=== PATIENT | male | born 1975 | race African-American/Black ===

== ENCOUNTER 2020-07-06 17:37 | Emergency (ER) | payer OTHER ==
[~2020-07-06] VITALS: Ht 172.7 cm; Wt 117.9 kg
[2020-07-06] MEDS ORDERED: NORVASC 2.5 MG2.5 M1 PO (17:46)
[2020-07-06] MEDS ORDERED: KAPSPARGO SPRIN50 MG PO (17:47)
[2020-07-06 19:04] LABS: HEMATOCRIT 40.9 % (42.0-52.0); HEMOGLOBIN 13.3 gm/dL (14.0-18.0); MCH 27.1 pg (26.0-34.0); MCHC 32.6 g/dL (28.0-37.0); MCV 83.2 fL (80.0-100.0); PLATELET COUNT 323 thou/uL (150-400); RBC 4.92 mil/uL (4.50-6.00); RDW 14.3 % (10.5-14.5); WBC 14.4 thou/uL (4.0-11.0)
[2020-07-06 19:21] LABS: CALCIUM 9.4 mg/dL (8.5-10.1); CREATININE 1.4 mg/dL (0.7-1.3); POTASSIUM 4.4 mmol/L (3.5-5.1)
[2020-07-06 19:28] LABS: ALBUMIN 3.7 g/dL (3.4-5.0); TOTAL BILIRUBIN 0.3 mg/dL (0.2-1.0); TOTAL PROTEIN 8.3 g/dL (6.4-8.2)
[2020-07-06 19:40] LABS: ABSOLUTE NEUTROPHILS 10.4 thou/uL (1.4-8.2)
[2020-07-06] MEDS ORDERED: MELOXICAM15 MG PO (21:50)
[2020-07-06] MEDS ORDERED: KEFLEX500 M1 PO (21:50)
[2020-07-06] MEDS ORDERED: FLEXERIL PO (22:02)
[2020-07-06 22:08] VITALS: BP 130/80
== END 2020-07-06 22:08 | disposition home or self-care (01) ==
LOC: ER 17:37
PROVIDERS: Physician Assistant
DX: L03.115 Cellulitis of right lower limb (principal); I10 Essential (primary) hypertension; Z79.899 Other long term (current) drug therapy; Z87.891 Personal history of nicotine dependence